=== PATIENT | female | born 1970 | race Caucasian/White ===

== ENCOUNTER → 2017-11-15 | Outpatient (CLI) | payer OTHER ==
[~2017-11-15] MED LIST: ASPIR 8181 MG PO; DILTIAZEM 24HR180 M2 PO; MAGNESIUM30 MG PO; METAXALL800 MG PO; PRADAXA150 MG PO; VENLAFAXINE HC150 M1 PO; VITAMIN D3400 UNIT PO; XANAX 0.5 MG0.5 MG PO
== END ==
LOC: RAD 12:38
DX: R06.00 Dyspnea, unspecified (principal)

== ENCOUNTER → 2017-12-13 | Outpatient (CLI) | payer OTHER ==
--- NOTE | ~2017-12-13 | SLE ---
[facility] [place] [address] POLYSOMNOGRAPHY STUDY Name: TAURUS JAIME Room #: REG LEEROY [facility].#: [id number] Admission: 12/13/17 Attend Phys: Obi Jane MD Discharge: Date of : 66 Report #: [id number] THIS REPORT FOR: //name// CC: Nick Bruner FAM unknown Obi Jane DATE OF SERVICE: 12/20/2017 HISTORY: The patient with history of obstructive sleep apnea, has been on the CPAP in the past and needed a repeat study. COMMENTS: Baseline portion: Total sleep time 154 minutes, sleep efficiency 75%. RESPIRATORY SUMMARY: Central apnea 2, mixed apnea 0, obstructive apnea 28, hypopnea 38. Apnea-hypopnea index of 26.5 events per sleep hour. Non-REM AHI 19, REM AHI 60. RERA 4. Respiratory effort related arousal index 1.6. Supine AHI 69, left lateral 36. Periodic limb movement with arousal index of 6.6 events per sleep hour. Low oxygen saturation 85%, spending 2.5% of recording time less than 90%. CPAP TITRATION: Titrated at 7, 9, 12, 14 and 15 cm water pressure. At 15 cm water pressure, the patient was seen for 116 minutes of which 12 minutes was in REM sleep. 4 hypopneas. Apnea-hypopnea index of 2.1 events per sleep hour. There were 10 RERAs for a respiratory disturbance index of 7 events per sleep hour. Low oxygen saturation 94%. Supine REM was seen at final setting. IMPRESSION: 1. Obstructive sleep apnea/hypopnea, G47.33. 2. No significant arrhythmia. 3. Periodic limb movement with arousal index of 6.6 events per hour, which decreased to 1.8 while on CPAP. 4. No significant arrhythmia noted. 5. CPAP improves; however, does not totally correct events. SUGGESTIONS: 1. In addition to specific therapy, the patient will be cautioned regarding driving or operating dangerous machinery unless fully alert. TSH and weight loss if indicated. [facility] [address] [place] [address] POLYSOMNOGRAPHY STUDY Name: YENITAURUS Room #: REG Dinora Ramy.#: [id number] Admission: 12/13/17 Attend Phys: Obi Jane MD Discharge: Date of : 66 Report #: [id number] 2. Further evaluation regarding etiology of snoring. 3. Sleep position retraining is recommended. 4. Oral appliance or appropriate surgery may be considered with appropriate followup. 5. An auto-titrating CPAP between 8 and 16 cm water pressure is initially recommended. During our study, a [employer] Simplus full face mask was used with heated humidity. 6. If signs and symptoms not improved with therapy, further evaluation recommended. Please do not hesitate to contact me if I may be of further assistance. <ELECTRONICALLY SIGNED> By: Nick Bruner MD 12/21/171940 03 [id number] Nick rBuner MD /[email or web address]
== END ==
LOC: SLEEPLAB 10:25
DX: G47.33 Obstructive sleep apnea (adult) (pediatric) (principal)

== ENCOUNTER → 2021-11-19 | Outpatient (CLI) | payer OTHER | LOC: SJCVCIMAG 09:05 | PROVIDERS: ATTEND Internal Medicine Cardiovascular Disease | DX: Z01.810 Encounter for preprocedural cardiovascular examination (principal); R94.31 Abnormal electrocardiogram [ECG] [EKG] ==